=== PATIENT | female | born 1945 | race Caucasian/White ===

== ENCOUNTER 2023-10-16 14:31 | Inpatient (IN) | payer MEDICARE, OTHER, SELFPAY ==
[2023-10-16] VITALS (30 sets, daily range): BP systolic 112–174; BP diastolic 57–78; BMI 26.9
--- NOTE | 2023-10-16 09:20 | ED.GENMED ---
History of Present Illness
General
Chief Complaint: Breathing Problem
Time Seen by Provider: 10/16/23 09:19
History of Present Illness
History of Present Illness:
HPI: Patient comes in by ambulance from [facility]. Apparently there was concern because of room air sat of 85%. Of note, the patient is currently 91% on room air and reports no chest pain or shortness of breath. She states she did have
chest pain earlier in the day but also states that she has chest pain every day. She was given nitroglycerin earlier. She does arrive with a POLST indicating limited measures. She did have a sore throat. We are told that there are a lot of
patients at [facility] with COVID. She is currently being treated with Macrobid for UTI.
EXAM:
GENERAL: Well appearing in no distress, room air sats are 91%
HEENT: Moist oral mucosa
CARDIOVASCULAR: No murmurs, normal heart rate and rhythm, No chest wall tenderness, mastectomy noted
PULMONARY: No respiratory distress, breath sounds are clear and equal
ABDOMEN: Soft with no peritoneal signs, no tenderness
NEUROLOGIC: Excellent strength all extremities, no coordination deficits
PSYCHIATRIC: Appropriate mental status, fair insight and judgement
EXTREMITIES: Nontender, no edema, moves all extremities equally
SKIN: No rash, no lesions
ED COURSE:
9:30 AM: I initially evaluated patient
NUMBER AND COMPLEXITY OF PROBLEMS ADDRESSED AT THE ENCOUNTER
� Chronic conditions affecting care: COPD, CAD
� Acute Exacerbation and/or Progression of Chronic Illness: This is an acute problem
� Differential Diagnosis includes: ACS, COPD exacerbation
AMOUNT AND/OR COMPLEXITY OF DATA TO BE REVIEWED AND ANALYZED
� I performed an independent evaluation of and my interpretation is:
EKG: Sinus 72, left axis deviation, nonspecific ST abnormality
CT:
X-rays: Chest x-ray shows no sign of pneumonia but may suggest some degree of interstitial edema
Laboratory Studies: COVID-19 negative, white count normal, hemoglobin slightly low 11.4, BNP not significantly elevated
Other:
� Review of other/old records: I reviewed lab work that was obtained 09/04/2023 that was relatively unremarkable including normal TSH. Urine culture from 10/11/2023 grew Citrobacter freundii which was resistant to cefazolin and
ampicillin based antibiotics
� Clinical information was obtained by an independent historian: Reviewed notes from [facility]
� Prescriptions/Medications Considered but not given:
� Further testing considered but not performed:
RISK OF COMPLICATIONS AND/OR MORBIDITY OR MORTALITY OF PATIENT MANAGEMENT
� Social determinants of health affecting care: Currently staying at [facility]
� Discussion with other providers: Dr. Regalado notified; hospitalist for admission at 10:30a
� Escalation of care including admission/observation vs risk of discharge considered: Will give fluids and check labs and reassess. Will give a DuoNeb as the patient does have a history of COPD. She is mildly hypoxic. Troponin
is elevated at 0.087 with no old to compare. I notified cardiology. Given the now worsening chest discomfort with elevated troponin, will keep in the hospital for further management and cardiology consultation.
Phy Exam
Physical Exam
Physical Exam:
See HPI
Scores
Heart Failure Risk
Heart Failure Risk Score: Not Applicable
Course
Orders/Labs/Results
Orders:
Orders
10/16/23 09:20
Electrocardiogram (*1) Urgent
Reason for Study: Shortness of Breath
10/16/23 09:21
EKG- Treatment ONCE
10/16/23 09:30
CR Chest Portable - 1 View Urgent
Comment:
Reason For Exam: sob
Reason Study Needs to be Portable: Patient Unstable
10/16/23 09:31
0.9% Sodium Chloride 500 ml [Nss] 500 ml IV BOLUS
10/16/23 09:36
Ipratropium/Albuterol Sulfate [Duoneb] 3 ml INH R NOW ONE
10/16/23 09:41
Basic Metabolic Panel Urgent
COVID-19 Antigen Urgent
Source: Nasal Swab
Complete Blood Count/With Diff Urgent
Lactic Acid Q4H
Comment: CANCEL 2nd LACTIC ACID IF 1st LACTIC ACID IS LESS THAN 2
NT-proBNP Urgent
Troponin I Urgent
Blood Culture Q30M
VERONIKA Source: Blood/Venous
Specimen Description:
Influenza A+B Rapid Molecular Urgent
VERONIKA Source: Nasal Swab
Specimen Description:
10/16/23 10:00
Blood Culture Q30M
VERONIKA Source: Blood/Venous
Specimen Description:
10/16/23 10:32
Aspirin 325 mg PO NOW STA
Nitroglycerin Sublingual [Nitrostat (Sublingual)] 0.4 mg SL NOW STA
10/16/23 10:33
Nitroglycerin Sublingual [Nitrostat (Sublingual)] 0.4 mg .ROUTE .STK-MED ONE
10/16/23 13:30
Lactic Acid Q4H
Comment: CANCEL 2nd LACTIC ACID IF 1st LACTIC ACID IS LESS THAN 2
Abnormal Lab Results
10/16/23
09:41
RBC 3.78 L 10^6/uL
(4.20-5.40)
Hgb 11.4 L g/dL
(12.0-16.0)
Hct 34.5 L %
(37.0-47.0)
RDW 14.6 H %
(11.5-14.5)
BUN 19 H mg/dl
(7-17)
Glucose 100 H mg/dl
(70-99)
Troponin I 0.087 H* ng/ml
10/16/23 09:41
10/16/23 09:41
Vital Signs
Initial and Last Documented VS:
Initial Vital Signs
Temp Pulse Resp BP Pulse Ox
98.2 F 72 19 150/71 92
10/16/23 09:23 10/16/23 09:23 10/16/23 09:23 10/16/23 09:23 10/16/23 09:23
Last Documented Vital Signs
Temp Pulse Resp BP Pulse Ox
98.2 F 89 23 174/73 93
10/16/23 09:23 10/16/23 10:35 10/16/23 10:35 10/16/23 10:35 10/16/23 10:37
*Pulse Oximetry
Patient hypoxic: yes
Comment: 91% to 92% on room air
*Critical Care Note
Total Time (30-74mins, 75-104mins- exclusive of procedures): Not Applicable
ED Attending Note
-
Portions of this chart may have been created with voice recognition software.� Occasional wrong word or��sound alike� substitutions may have occurred due to the inherent limitations of voice recognition software.
Discharge Plan
Departure
Patient Disposition: Admit
Date of Disposition: 10/16/23
Time of Disposition: 10:39
Presentation/result/management discussed w/ accepting MD/DO: Hospitalist
Discharge Problem:
Elevated troponin
Referrals:
Alen Vallecillo DO [Family Provider] -
Interventions
Interventions:
*Risk Screen - Suicide Last Done: 10/16/23 09:23
*ED COVID-19 Vaccine History Last Done: 10/16/23 10:39
ED- Cardiac Assessment Last Done: 10/16/23 10:37
ED- Pulmonary Assessment Last Done: 10/16/23 10:37
[2023-10-16 09:52] LABS: % Basophils 0.5 % (0-2); % Eosinophils 2.1 % (0-6); % Immature Granulocytes 0.3 % (0-0.5); % Lymphocytes 22.1 % (20.5-51.1); % Monocytes 8.2 % (1.7-9.3); % Neutrophils 66.8 % (42.2-75.2); Absolute Eosinophils 0.2 10^3/uL (0-0.7); Absolute Lymphocytes 1.7 10^3/uL (1.2-3.4); Absolute Monocytes 0.6 10^3/uL (0.1-0.6); Absolute Neutrophils 5.1 10^3/uL (1.4-6.5); Hematocrit 34.5 % (37.0-47.0); Hemoglobin 11.4 g/dL (12.0-16.0); Mean Corpuscular Hgb 30.2 pg (27.0-31.0); Mean Corpuscular Volume 91.3 fL (81.0-99.0); Mean Platelet Volume 9.9 fL (7.4-10.4); Nucleated Red Blood Cells % 0 %; Platelet Count 251 10^3/uL (130-400); Red Blood Cell Count 3.78 10^6/uL (4.20-5.40); Red Cell Dist. Width 14.6 % (11.5-14.5); White Blood Cell Count 7.6 10^3/uL (4.8-10.8)
[2023-10-16] MEDS: DUONEB 3 ML INH (09:54)
[2023-10-16] MEDS: NSS 500 IV (09:56)
[2023-10-16 10:06] LABS: COVID-19 Antigen Negative (Negative)
[2023-10-16 10:08] LABS: Blood Urea Nitrogen 19 mg/dl (7-17); Calcium 8.9 mg/dl (8.4-10.2); Carbon Dioxide 28 mmol/L (22-30); Chloride 105 mmol/L (98-107); Estimated Creatinine Clearance 47 ml/min; Glucose 100 mg/dl (70-99); Potassium 3.6 mmol/L (3.5-5.1); Sodium 140 mmol/L (135-145); eGFR > 60.00
[2023-10-16 10:11] LABS: Lactic Acid 1.2 mmol/L (0.7-2.0)
[2023-10-16 10:27] LABS: NT-proBNP 761 pg/ml; Troponin I 0.087 ng/ml
[2023-10-16] MEDS: NITROSTAT (SUBLINGUAL) 0.400000000000000022 MG SL (10:34)
[2023-10-16] MEDS: ASPIRIN 325 MG PO (10:52)
--- NOTE | 2023-10-16 11:17 | CON.CAR ---
Addendum entered and electronically signed by Terrell Munoz MD 10/16/23 16:40:
I saw and examined the patient.
The Horizontal Drill Operator's note was reviewed and I agree with the note.
Comment:
GEN: No distress, awake, Ox3
HEENT: supple, anicteric, mmm
LUNGS: CTA, no wheezes/rales
CV: Reg, S1/S2, 1/6 syst LSB, no gallop
ABD: soft, BS+, NT/ND
EXT: No edema
NEURO: L sided weakness
SKIN: No rash
Plan:
She has a past medical history of coronary artery disease, stroke status post cath, chronic chest pains, hypertension, and hyperlipidemia. She presents from [facility] for hypoxia and continued intermittent chest pains. She had a history of
PCI in 2009 vessel is unknown. She had significant stroke status post diagnostic cardiac cath in [address] scan reveals no pulmonary embolism or clear signs of congestive heart failure.
Cardiac troponin remains abnormal at 0.08. With her history of stroke we will start with an echocardiogram and try to adjust medical therapy for coronary arteries.
Continue metoprolol, Plavix, and diltiazem. Heart rate and blood pressure are stable.
Continue Crestor 20 mg daily.
She has been intolerant of Imdur and isosorbide and reportedly Norvasc in the past. Will check records.
Will try nitro patch 0.1 and see if this helps symptoms
Original Note:
Consultation
Consultation Request
Date/Time Consultation Requested: 10/16/23
Date/Time Consultation Performed: 10/16/23
Requesting Provider: Dr. Echeverria in the ER
Performing Provider: Dr. Munoz
Reason for Consultation: Chest pain, SOB, elevated Troponin
Medical History
-
History of Present Illness:
Patient came to [facility] from [facility] with chest pain and SOB and cardiology has been consulted. Patient was sent from [facility] to [facility] this morning with hypoxia. Patient's daughter and are bedside and say that there is no h/o hypoxia and patient does
not normally wear supplemental oxygen. Patient just transitioned to being a long-term resident at [facility] in August. She previously lived at home with her , but has required extra assistance since she had a CVA in 2019 during a cath. Patient
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 Patient has also been on
medical therapy including chronic Plavix therapy, Toprol XL and Imdur ER, but patient stopped taking Imdur ER in the last month or so. Patient has Ranexa listed as an intolerance on her 'my-chart' patient portal. Patient says that she has chest pain
daily and takes NTG SL about once a day and usually has relief of pain with 1 dose. Patient also has morphine PO PRN and uses this several times a week. Family thinks patient has more chest pain when she has a UTI and that she has had frequent UTIs
in the last year. Patient has been on multiple antibiotic regimens for UTI and family reports that her urine never seems to clear. Patient was hypoxic at [facility] and sent to [facility]. In the ER she was started on oxygen and pulse ox improved. Patient had
chest pain which again her family says is not unusual. Patient was given NTG SL x1 and no relief so she was given a 2nd NTG SL and then had relief.
PMH:
Chronic angina
CAD s/p multivessel PCI at [facility] 2019
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
Chronic Plavix therapy
HTN
Hyperlipidemia
Past Medical History
Past Medical History: Other (in HPI)
Past Surgical History: Appendectomy, Cardiac (multi-vessel PCI at [facility] 2019), Cholecystectomy, Gynecological (B/L mastectomy for CAD) and Tonsilectomy
Social History
Tobacco: Former Smoker
Alcohol: None
Drug: None
Personal:
Living: Retirement (long-term at [facility] since 08/2023)
Family History
Family History: Diabetes
Allergies / Home Medications
Allergy/AdvReac Type Severity Reaction Status Date / Time
No Known Allergies Allergy Unverified 10/16/23 09:20
Review of Systems
-
History Source: Patient and Family (daughter and at bedside helping with HPI)
All other systems: Negative unless noted
Physical Exam
Vital Signs
Temp Pulse Resp BP Pulse Ox
98.2 F 89 23 174/73 93
10/16/23 09:23 10/16/23 10:35 10/16/23 10:35 10/16/23 10:35 10/16/23 10:37
GEN: NAD. AAOx3
HEENT: EOMI, MMM
LUNGS: CTA B/L, no wheezes or rales
CV: Reg, S1/S2, no murmur
ABD: soft, BS+, NT/ND
EXT: No clubbing, cyanosis, lesions or edema B/L
NEURO: Left hemiparesis.
SKIN: Warm, dry and pink. No rash
Lab Results
10/16/23 09:41
10/16/23 09:41
Troponin I 0.087 ng/ml H* 10/16/23 09:41
Vkp-G-Gqtibjvziow Pept 761 pg/ml 10/16/23 09:41
Impression / Plan
-
PCP: Dr. Alen Vallecillo
Cardiology: Dr. Edvin Calvin at [facility]
Impression:
SOB
Acute hypoxic respiratory insufficiency
Possible UTI with h/o frequent UTIs
Elevated Troponin
Chronic angina
CAD s/p multivessel PCI at [facility] 2019
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
Chronic Plavix therapy
HTN
Hyperlipidemia
Echo 2020: [facility] study, EF 75%, no WMA, no significant valve disease
Plan:
-Patient came to [facility] from [facility] with chest pain and SOB and cardiology has been consulted. Patient was sent from [facility] to [facility] this morning with hypoxia. Patient's daughter and are bedside and say that there is no h/o hypoxia and patient does
not normally wear supplemental oxygen. Patient just transitioned to being a long-term resident at [facility] in August. She previously lived at home with her , but has required extra assistance since she had a CVA in 2019 during a cath. Patient
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 Patient has also been on
medical therapy including chronic Plavix therapy, Toprol XL and Imdur ER, but patient stopped taking Imdur ER in the last month or so. Patient has Ranexa listed as an intolerance on her 'my-chart' patient portal. Patient says that she has chest pain
daily and takes NTG SL about once a day and usually has relief of pain with 1 dose. Patient also has morphine PO PRN and uses this several times a week. Family thinks patient has more chest pain when she has a UTI and that she has had frequent UTIs
in the last year. Patient has been on multiple antibiotic regimens for UTI and family reports that her urine never seems to clear. Patient was hypoxic at [facility] and sent to [facility]. In the ER she was started on oxygen and pulse ox improved. Patient had
chest pain which again her family says is not unusual. Patient was given NTG SL x1 and no relief so she was given a 2nd NTG SL and then had relief.
-Reviewed records form [facility] and summarized above.
-Patient with chronic angina and a h/o CAD with multivessel stenting in 2019. Initial Troponin 0.087 and then trended down to 0.082. ECG reviewed by me without acute ischemic changes.
-Patient has been on Ranexa and was intolerant for unclear reasons. Most recently she has stopped her Imdur ER. Patient is willing to try a Nitro-dur patch at 0.1 mg/hr, ordered to start now and order for removal at HS.
-Check echo
-Do not check additional Troponins.
-pro-BNP is only 761. There is no h/o CHF and patient does not take a diuretic as an outpatient.
--- NOTE | 2023-10-16 14:07 | HPS.HSE ---
Addendum entered and electronically signed by Santhosh Siegel MD 10/16/23 15:11:
I saw and examined the patient.
The RUBBER FLAP TUBER MACHINE OPERATOR or PA's note was reviewed and I agree with the note.
Comment: 78-year-old female with past medical history of CAD status post stent, CVA, hypertension, COPD came to the hospital initially with hypoxia. In the ED patient developed severe chest pain. Per patient she has been having chest pain for
about a month. Seen by cardiology in the ED. No plans for cardiac catheterization as patient does not want to. Will treat medically for now. Trend troponin. Check echo. Chest pain better with nitro.
General:�Comfortable and Conversant
HEENT:�Anicteric, Moist mucous membranes and Oxygen (Nasal Cannula)
Respiratory:�Clear and Non Labored Respirations
Cardiac:�S1/S2 and Regular Rhythm; No Murmur
GI:�Soft, Non Tender and Non Distended
Rectal:�Deferred by Provider
Musculoskeletal:�No Clubbing, No Cyanosis and No Edema
Skin:�Warm and Dry; No Rash
Neuro:�Awake, Alert, Oriented and Other (Left hemiparesis which is baseline)
Original Note:
Family Physician
-
Family Physician: Alen Vallecillo DO
Chief Complaint
-
Chest Pain
History of Present Illness
Patient is a 78 y/o female past medical history of CAD, CVA, HTN and COPD who presents with hypoxia. Patient resides at [facility]. She was noted to be hypoxic today by staff who then sent her to the emergency department for evaluation.
Patient denies any shortness of breath. She admits to daily episodes of chest pain for which she takes nitroglycerin with improvement. Upon arrival to the emergency room to be in the point of severe chest pain. She notes that pain today was
radiating to her back and down both arms which is not her usual pain. She denies any shortness of breath, palpitations or lower extremity edema.
Medical History
Past Medical History
Past Medical History: Reports Other
Additional Past Medical History:
Coronary Artery Disease
CVA post cardiac cath with Residual Left Hemiparesis
Essential Hypertension
Hyperlipidemia
COPD
Anxiety/Depression
Spinal Stenosis
GERD
Chronic Constipation
Recurrent Urinary Tract Infections
Breast Cancer
Past Surgical History: Reports Other
Additional Past Surgical History:
Bilateral Mastectomy
Cholecystectomy
Appendectomy
Laminectomy
Social History
Tobacco: Former Smoker (Quit in 2019)
Alcohol: None
Living: [facility]
Family History
Family History: Not pertinent
Allergies / Home Medications
Allergies reflects when Allergies were last updated in [facility].
Home Medications with original date entered in [facility]
Allergy/Medication List:
Allergies
Allergy/AdvReac Type Severity Reaction Status Date / Time
No Known Allergies Allergy Unverified 10/16/23 09:20
Home Medications
Saccharomyces boulardii 250 mg capsule (Probiotic (S.boulardii)) 250 mg PO BID@0830,1830 probiotic 10/16/23
acetaminophen 325 mg tablet (Tylenol) 650 mg PO Q4H PRN mild pain/fever>100.4 10/16/23
albuterol sulfate 90 mcg/actuation aerosol inhaler 2 puff inhalation R Q6HPRN PRN wheezing 10/16/23
bisacodyl 10 mg rectal suppository 10 mg IA DAILY PRN q 3 days when no BM and MOM/lactulose ineffective 10/16/23
cholecalciferol (vitamin D3) 1,250 mcg (50,000 unit) tablet 1,250 mcg PO QMONTH@829 Supplement 10/16/23
clonazepam 1 mg tablet 1 mg PO DAILY@2029 Mental Health/Anxiety 10/16/23
clopidogrel 75 mg tablet 75 mg PO DAILY@829 Blood Clot Prevention/Tx 10/16/23
diltiazem HCl 180 mg capsule,24 hr,extended release 180 mg PO DAILY@829 Heart Disease/Condition 10/16/23
fluticasone furoate 100 mcg-vilanterol 25 mcg/dose inhalation powder (Breo Ellipta) 1 inh inhalation R DAILY@0830 Lung/Breathing Issues 10/16/23
magnesium hydroxide 400 mg/5 mL oral suspension (Milk of Magnesia) 30 ml PO HSPRN PRN constipation 10/16/23
metoprolol succinate 50 mg tablet,extended release 24 hr 50 mg PO DAILY@1830 Heart Disease/Condition 10/16/23
morphine 15 mg immediate release tablet 15 mg PO Q4H PRN severe pain 10/16/23
dnctablk-gzmcken-jbxg-lutein tablet 1 tab PO DAILY@0830 Supplement 10/16/23
naloxone 4 mg/actuation nasal spray 1 spray intranasal DAILYPRN PRN opioid overdose 10/16/23
nitrofurantoin monohydrate/macrocrystals 100 mg capsule 100 mg PO BID@0830,1830 UTI 10/16/23
nitroglycerin 0.4 mg sublingual tablet 0.4 mg sublingual [id number] PRN acute angina 10/16/23
pantoprazole 40 mg tablet,delayed release 40 mg PO DAILY@0830 Gastrointestinal Issue 10/16/23
phenazopyridine 200 mg tablet 200 mg PO TID@0830,1330,1830 UTI 10/16/23
rosuvastatin 20 mg tablet 20 mg PO DAILY@2030 High Cholesterol 10/16/23
sennosides 8.6 mg-docusate sodium 50 mg tablet 2 tab-cap PO DAILY@1830 Constipation 10/16/23
sertraline 50 mg tablet 50 mg PO DAILY@0830 Mental Health/Anxiety 10/16/23
Review of Systems
-
A 12 point ROS was completed and negative except as noted: Yes
Constitutional: Denies Fever or Chills
Respiratory: Denies Cough or Trouble Breathing
Cardiac: Reports See HPI
Physical Exam
Vital Signs
Vital Signs
Temp Pulse Resp BP Pulse Ox
98.2 F 89 23 174/73 93
10/16/23 09:23 10/16/23 10:35 10/16/23 10:35 10/16/23 10:35 10/16/23 10:37
Physical Exam
General: Comfortable and Conversant
HEENT: Anicteric, Moist mucous membranes and Oxygen (Nasal Cannula)
Respiratory: Clear and Non Labored Respirations
Cardiac: S1/S2 and Regular Rhythm; No Murmur
GI: Soft, Non Tender and Non Distended
Rectal: Deferred by Provider
Musculoskeletal: No Clubbing, No Cyanosis and No Edema
Skin: Warm and Dry; No Rash
Neuro: Awake, Alert, Oriented and Other (Left hemiparesis which is baseline)
Laboratory Results
-
10/16/23 09:41
10/16/23 09:41
Laboratory Results
Lactic Acid 1.2 mmol/L (0.7-2.0) 10/16/23 09:41
Troponin I 0.087 ng/ml H* 10/16/23 09:41
Data Reviewed
-
Medical Tests (Nuc Med, Echo, EKG etc): Report Reviewed by me (EKG)
Lab Data: Labs Reviewed by me
Impression/Plan
-
Unstable Angina
-Consult Cardiology
-Continue to trend troponin
-Check Echo
-Continue Nitroglycerine SL PRN
-Nitroglycerine transdermal added by Cardiology
Coronary Artery Disease s/p cardiac stent in 2019
-Attempt to obtain records
-Continue Plavix
CVA post cardiac cath with Residual Left Hemiparesis
-Patient is wheelchair bound at baseline
-Continue Plavix
-Consult PT/OT
Essential Hypertension
-Continue diltiazem and metoprolol
Hyperlipidemia
-Continue rosuvastatin
COPD, no acute exacerbation
-Continue Pulmicort neb in place of usual Breo
-Cotninue Duoneb PRN
Generalized Anxiety Disorder
-Continue sertraline
-Continue clonazepam
Spinal Stenosis
-Continue morphine IR prn severe pain
GERD
-Continue Protonix
Chronic Constipation
-Continue Senna-S BID
Recent Citrobacter UTI
-Continue Macrobid to complete coarse on Oct 18
DVT proph: Lovenox
Code Status: DNR
[2023-10-16] MEDS: NITRO-DUR 0.100000000000000006 MG TRANSDERM (15:17)
[2023-10-16 16:01] LABS: Troponin I 0.082 ng/ml
--- NOTE | 2023-10-16 17:23 | PTCARENOTE ---
Received patient from ER at 1700, awake alert oriented . Able to make needs known. No complaints of chest pain, denies shortness of breath. Is on o2 at 2 LPM. Oriented to room , call wilson in reach .
[2023-10-16] MEDS: Pyridium 200 MG PO (17:51)
[2023-10-16] MEDS: MACROBID 100 MG PO (17:51)
[2023-10-16] MEDS: FLORASTOR 250 MG PO (17:52)
[2023-10-16] MEDS: LOVENOX 40 MG SC (17:52)
[2023-10-16] MEDS: TOPROL XL 50 MG PO (17:53)
[2023-10-16] MEDS: PULMICORT 0.5 MG INH (20:11)
[2023-10-16] MEDS: SENOKOT-S 2 TABLET PO (20:28)
[2023-10-16] MEDS: CRESTOR 20 MG PO (20:28)
[2023-10-16] MEDS: KLONOPIN 1 MG PO (20:28)
[2023-10-16 21:04] LABS: Troponin I 0.075 ng/ml
[2023-10-17] VITALS (9 sets, daily range): BP systolic 103–177; BP diastolic 62–83; PULSE 81–89; O2SAT 93; BMI 23.9
[2023-10-17 07:55] LABS: Hematocrit 34.3 % (37.0-47.0); Mean Corp Hgb Conc. 32.1 g/dL (33.0-37.0); Mean Corpuscular Hgb 29.6 pg (27.0-31.0); Mean Corpuscular Volume 92.5 fL (81.0-99.0); Mean Platelet Volume 10.1 fL (7.4-10.4); Platelet Count 234 10^3/uL (130-400); Red Blood Cell Count 3.71 10^6/uL (4.20-5.40); Red Cell Dist. Width 14.5 % (11.5-14.5); White Blood Cell Count 6.2 10^3/uL (4.8-10.8)
[2023-10-17] MEDS: PULMICORT 0.5 MG INH ×2 (08:11→20:13)
[2023-10-17] MEDS: NITRO-DUR 0.100000000000000006 MG TRANSDERM (08:25)
[2023-10-17] MEDS: PLAVIX 75 MG PO (08:26)
[2023-10-17] MEDS: SENOKOT-S 2 TABLET PO (08:26)
[2023-10-17] MEDS: MACROBID 100 MG PO ×2 (08:26→17:31)
[2023-10-17] MEDS: CARDIZEM CD 180 MG PO (08:26)
[2023-10-17] MEDS: FLORASTOR 250 MG PO ×2 (08:26→17:31)
[2023-10-17] MEDS: ZOLOFT 50 MG PO (08:27)
[2023-10-17] MEDS: Pyridium 200 MG PO ×2 (08:27→13:05)
[2023-10-17] MEDS: PROTONIX 40 MG PO (08:27)
[2023-10-17 08:45] LABS: Blood Urea Nitrogen 19 mg/dl (7-17); Calcium 8.4 mg/dl (8.4-10.2); Carbon Dioxide 26 mmol/L (22-30); Chloride 108 mmol/L (98-107); Estimated Creatinine Clearance 53 ml/min; Glucose 81 mg/dl (70-99); HDL Cholesterol 39 mg/dl; LDL Cholesterol, Calculated 48 mg/dl; Magnesium 2.1 mg/dl (1.6-2.3); Potassium 3.9 mmol/L (3.5-5.1); Sodium 139 mmol/L (135-145); Total Cholesterol 111 mg/dl (50-199); Triglyceride 120 mg/dl (10-149); Very Low Density Lipoprotein 24 mg/dl (0-30); eGFR > 60.00
--- NOTE | 2023-10-17 11:29 | W.PN.CARDCBS ---
Addendum entered and electronically signed by Memo Ceja MD 10/17/23 15:33:
I saw and examined the patient.
The Records And Tape Recordings Engineer's note was reviewed and I agree with the note.
Comment: Briefly 78-year-old woman past medical history of MV CAD with prior PCI in 2019 complicated by CVA and chronic angina who presented initially from [facility] with hypoxia based on pulse ox reading there. Here in the [place]
emergency department she developed chest discomfort and found to have elevated troponin and therefore was admitted for further evaluation and management.
It sounds like she has chronic stable angina, but unfortunately has been intolerant to multiple medications including amlodipine, Ranexa and recently Imdur
She has been taking sublingual nitroglycerin on a regular basis
Nitropatch was placed yesterday and since that time patient tells me she is chest pain-free, would plan to continue as an outpatient
Continue medical management of CAD with Plavix and high intensity statin
Continue beta-yareli and calcium channel yareli as antianginals
In regards to further ischemic evaluation, she would not be agreeable to invasive coronary angiography given her previous cath was complicated by periprocedural CVA
Stable cardiac status, we will sign off
Outpatient follow-up has been arranged
Original Note:
Today's Communication / Plan
-
No further chest pain
Continue nitro patch
Follow up arranged
Impression / Plan
-
PCP: Dr. Alen Vallecillo
Cardiology: Dr. Edvin Calvin at [facility]
Impression:
SOB
Acute hypoxic respiratory insufficiency
Possible UTI with h/o frequent UTIs
NonMI troponin elevation
Chronic angina
CAD s/p multivessel PCI at [facility] 2019
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
Chronic Plavix therapy
HTN
Hyperlipidemia
Echo 2020: [facility], EF 75%, no WMA, no significant valve disease
Echo 10/17/2023: Study completed, report pending.
Plan:
-Presented with SOB and chest pain. She has known history of chronic angina with h/o multivessel stenting in 2019.
-Initial troponin elevated at 0.087, trending down thereafter.
-She previously was on Ranexa and Imdur and reportedly did not tolerate either medication.
-Started on Nitro-dur patch at 0.1 mg/hr 10/16 and has been chest pain free.
-Will continue nitro patch, plavix, cardizem, and Toprol.
-Continue crestor. LDL 48.
-Echo completed 10/17/2023, report pending.
-No h/o CHF and appears euvolemic.
-Will arrange OP follow up.
HPI: Patient came to [facility] from [facility] with chest pain and SOB and cardiology has been consulted. Patient was sent from [facility] with hypoxia. Patient's daughter and are bedside and say that there is no h/o hypoxia and patient
does not normally wear supplemental oxygen. Patient just transitioned to being a long-term resident at [facility] in August. She previously lived at home with her , but has required extra assistance since she had a CVA in 2019 during a cath.
Patient was also found to have multivessel CAD and a couple of weeks later she went back to the [facility] laboratory [facility] and had multivessel stenting when she was turned down for CABG, but they do not have stent cards and do not know which vessels. Patient has also
been on medical therapy including chronic Plavix therapy, Toprol XL and Imdur ER, but patient stopped taking Imdur ER in the last month or so. Patient has Ranexa listed as an intolerance on her 'my-chart' patient portal. Patient says that she has
chest pain daily and takes NTG SL about once a day and usually has relief of pain with 1 dose. Patient also has morphine PO PRN and uses this several times a week. Family thinks patient has more chest pain when she has a UTI and that she has had
frequent UTIs in the last year. Patient has been on multiple antibiotic regimens for UTI and family reports that her urine never seems to clear. Patient was hypoxic at [facility] and sent to [facility]. In the ER she was started on oxygen and pulse ox improved.
Patient had chest pain which again her family says is not unusual. Patient was given NTG SL x1 and no relief so she was given a 2nd NTG SL and then had relief.
Progress Note - Chief Technical Officer
Subjective
Date of Service: October 17, 2023
No further chest pain.
Objective
Labs:
10/17/23 06:46
10/17/23 06:46
Labs
Hgb 11.0 g/dL (12.0-16.0) L 10/17/23 06:46
Hct 34.3 % (37.0-47.0) L 10/17/23 06:46
Plt Count 234 10^3/uL (130-400) 10/17/23 06:46
Sodium 139 mmol/L (135-145) 10/17/23 06:46
Potassium 3.9 mmol/L (3.5-5.1) 10/17/23 06:46
BUN 19 mg/dl (7-17) H 10/17/23 06:46
Creatinine 0.7 mg/dL (0.6-1.0) 10/17/23 06:46
Glucose 81 mg/dl (70-99) 10/17/23 06:46
Troponins
10/16/23 10/16/23 10/16/23
09:41 15:15 20:25
Troponin I 0.087 H* 0.082 H* 0.075 H*
Vital Signs and I&O:
Vital Signs
Temp Pulse Resp BP Pulse Ox
98.0 F 61 16 143/63 92
10/17/23 07:30 10/17/23 08:14 10/17/23 08:14 10/17/23 07:30 10/17/23 10:15
Vital Signs
Temp Pulse Resp BP Pulse Ox
98.0 F 61 16 143/63 92
10/17/23 07:30 10/17/23 08:14 10/17/23 08:14 10/17/23 07:30 10/17/23 10:15
Intake & Output
10/15/23 10/16/23 10/17/23 10/18/23
06:59 06:59 06:59 06:59
Intake Total 960 / 960
Output Total 100 / 100
Balance 860 / 860
Physical Exam
Physical Exam
GEN: NAD. AAOx3
HEENT: EOMI, MMM
LUNGS: CTA B/L, no wheezes or rales
CV: Reg, S1/S2, no murmur
ABD: soft, BS+, NT/ND
EXT: No clubbing, cyanosis, lesions or edema B/L
NEURO: Left hemiparesis.
SKIN: Warm, dry and pink. No rash
--- NOTE | 2023-10-17 11:40 | W.PN.HOSP.TC ---
Today's Communication/Plan
-
monitor vitals
see plan
cw nitro
cardiology to see today
Assessment / Plan
Assessment / Plan
General:�Comfortable and Conversant
HEENT:�Anicteric, Moist mucous membranes and Oxygen (Nasal Cannula)
Respiratory:�Clear and Non Labored Respirations
Cardiac:�S1/S2 and Regular Rhythm; No Murmur
GI:�Soft, Non Tender and Non Distended
Rectal:�Deferred by Provider
Musculoskeletal:�No Clubbing, No Cyanosis and No Edema
Skin:�Warm and Dry; No Rash
Neuro:�Awake, Alert, Oriented and Other (Left hemiparesis which is baseline)
Unstable Angina
-Consult Cardiology following
trop not significant; likely non [place] related
- Echo
-cw nitro patch
Coronary Artery Disease s/p cardiac stent in 2019
-Attempt to obtain records
-Continue Plavix
CVA post cardiac cath with Residual Left Hemiparesis
-Patient is wheelchair bound at baseline
-Continue Plavix
-PT/OT
Essential Hypertension
-Continue diltiazem and metoprolol
Hyperlipidemia
-Continue rosuvastatin
COPD, no acute exacerbation
-Continue Pulmicort neb in place of usual Breo
-Cotninue Duoneb PRN
Generalized Anxiety Disorder
-Continue sertraline
-Continue clonazepam
Spinal Stenosis
-Continue morphine IR prn severe pain
GERD
-Continue Protonix
Chronic Constipation
-Continue Senna-S BID
Recent Citrobacter UTI
-Continue Macrobid to complete coarse on Oct 18
DVT proph: Lovenox
Code Status: DNR
Anticipated Discharge: Within 24 hours
Subjective/Interval History
-
Date of Service: October 17, 2023
feeling better
Objective Data
-
Labs:
Laboratory Results
10/17/23
06:46
WBC 6.2
Hgb 11.0 L
Hct 34.3 L
Plt Count 234
Sodium 139
Potassium 3.9
Chloride 108 H
Carbon Dioxide 26
BUN 19 H
Creatinine 0.7
Glucose 81
Calcium 8.4
Vital Signs:
Vital Signs
Temp Pulse Resp BP Pulse Ox
98.0 F 61 16 143/63 92
10/17/23 07:30 10/17/23 08:14 10/17/23 08:14 10/17/23 07:30 10/17/23 10:15
I&O
10/16/23 10/17/23 10/18/23
06:59 06:59 06:59
Intake Total 960 / 960
Output Total 100 / 100
Balance 860 / 860
--- NOTE | 2023-10-17 16:25 | CM ---
Addendum entered by Juany Villaseñor 10/17/23 17:02:
If needed, Fax # for [facility] is [phone]
Spoke with Jeffry # [phone]; explained that the SNF referral was sent via [employer] (aka, [employer]). He will give this information to his supercharge repair supervisor
Original Note:
Initial assessment completed with daughter, Berta, via phone
Daughter came from [facility]; terminal carman care; bed on hold
Daughter reported that mother requires total care; but can feed self if food is cut for her; until recently, she was able to ambulate; incontinent unless staff can get her to bathroom when needed.
Explained to daughter that PT recommends Skilled rehab when stable for discharge. Daughter reported that she was in the process of moving mother to [facility] (located near her home).
Daughter reported via phone that she spoke to [facility] and was told that they will have a bed on Saturday. Per daughter's request, SNF referral sent to [facility]
Daughter reported that she plans to contact [facility] and cancel bed hold
Patient has Medicare; requires 3 night stay for SNF
Plan: discharge to SNF @ [facility], located at [address] [place] [address]; followed by prison care
[2023-10-17] MEDS: LOVENOX 40 MG SC (17:30)
[2023-10-17] MEDS: TOPROL XL 50 MG PO (17:31)
[2023-10-17] MEDS: KLONOPIN PO (20:28)
[2023-10-17] MEDS: CRESTOR 20 MG PO (20:28)
[2023-10-17] MEDS: SENOKOT-S PO (20:29)
[2023-10-17] MEDS: KLONOPIN 1 MG PO (22:29)
[2023-10-18 03:56] VITALS: BP 136/62
[2023-10-18 04:57] VITALS: BMI 24.0
[2023-10-18 07:30] VITALS: BP 162/73
[2023-10-18] MEDS: PULMICORT 0.5 MG INH ×2 (07:53→20:15)
[2023-10-18] MEDS: DUONEB 3 ML INH ×2 (07:54→15:55)
[2023-10-18 08:59] LABS: % Basophils 0.4 % (0-2); % Eosinophils 2.7 % (0-6); % Immature Granulocytes 0.4 % (0-0.5); % Lymphocytes 32.5 % (20.5-51.1); % Monocytes 10.7 % (1.7-9.3); % Neutrophils 53.3 % (42.2-75.2); Absolute Eosinophils 0.2 10^3/uL (0-0.7); Absolute Lymphocytes 1.8 10^3/uL (1.2-3.4); Absolute Monocytes 0.6 10^3/uL (0.1-0.6); Absolute Neutrophils 2.9 10^3/uL (1.4-6.5); Hematocrit 33.7 % (37.0-47.0); Hemoglobin 10.9 g/dL (12.0-16.0); Mean Corp Hgb Conc. 32.3 g/dL (33.0-37.0); Mean Corpuscular Hgb 29.1 pg (27.0-31.0); Mean Corpuscular Volume 90.1 fL (81.0-99.0); Mean Platelet Volume 9.5 fL (7.4-10.4); Nucleated Red Blood Cells % 0 %; Platelet Count 233 10^3/uL (130-400); Red Blood Cell Count 3.74 10^6/uL (4.20-5.40); Red Cell Dist. Width 14.5 % (11.5-14.5); White Blood Cell Count 5.5 10^3/uL (4.8-10.8)
[2023-10-18] MEDS: PROTONIX 40 MG PO (08:59)
[2023-10-18] MEDS: ZOLOFT 50 MG PO (08:59)
[2023-10-18] MEDS: SENOKOT-S PO ×3 (08:59→20:43)
[2023-10-18] MEDS: NITRO-DUR 0.100000000000000006 MG TRANSDERM (08:59)
[2023-10-18] MEDS: PLAVIX 75 MG PO (09:00)
[2023-10-18] MEDS: MACROBID PO ×3 (09:00→17:11)
[2023-10-18] MEDS: FLORASTOR 250 MG PO ×2 (09:00→17:11)
[2023-10-18] MEDS: CARDIZEM CD 180 MG PO (09:00)
[2023-10-18 09:16] LABS: Blood Urea Nitrogen 15 mg/dl (7-17); Calcium 8.4 mg/dl (8.4-10.2); Carbon Dioxide 26 mmol/L (22-30); Chloride 105 mmol/L (98-107); Estimated Creatinine Clearance 47 ml/min; Glucose 88 mg/dl (70-99); Potassium 3.5 mmol/L (3.5-5.1); Sodium 138 mmol/L (135-145); eGFR > 60.00
--- NOTE | 2023-10-18 11:03 | PTCARENOTE ---
Pt refused Macrobid. Dr. Siegel notified. No new orders.
--- NOTE | 2023-10-18 11:17 | W.PN.HOSP.TC ---
Today's Communication/Plan
-
Monitor vital signs and see plan
If diarrhea persist then check stool studies
Continue Nitropatch
Discharge planning
Assessment / Plan
Assessment / Plan
General:�Comfortable and Conversant
HEENT:�Anicteric, Moist mucous membranes and Oxygen (Nasal Cannula)
Respiratory:�Clear and Non Labored Respirations
Cardiac:�S1/S2 and Regular Rhythm; No Murmur
GI:�Soft, Non Tender and Non Distended
Rectal:�Deferred by Provider
Musculoskeletal:�No Clubbing, No Cyanosis and No Edema
Skin:�Warm and Dry; No Rash
Neuro:�Awake, Alert, Oriented and Other (Left hemiparesis which is baseline)
Unstable Angina
-Cardiology following
trop not significant; likely non [place] related. patient does not want cardiac catheterization as with the previous catheterization she ended up having stroke.
- Echo 10/17 with EF 60 to 65%
-cw nitro patch, pain better
Coronary Artery Disease s/p cardiac stent in 2019
-Attempt to obtain records
-Continue Plavix
CVA post cardiac cath with Residual Left Hemiparesis
-Patient is wheelchair bound at baseline
-Continue Plavix
-PT/OT
Mild anemia, suspect anemia of chronic disease
Diarrhea
monitor; if increasing frequency then will check stool studies
Essential Hypertension
-Continue diltiazem and metoprolol
Hyperlipidemia
-Continue rosuvastatin
COPD, no acute exacerbation
-Continue Pulmicort neb in place of usual Breo
-Cotninue Duoneb PRN
Generalized Anxiety Disorder
-Continue sertraline
-Continue clonazepam
Spinal Stenosis
-Continue morphine IR prn severe pain
GERD
-Continue Protonix
Chronic Constipation
-Continue Senna-S BID
Recent Citrobacter UTI
-Continue Macrobid to complete coarse on Oct 18
DVT proph: Lovenox
Code Status: DNR
Anticipated Discharge: Within 24 hours
Subjective/Interval History
-
Date of Service: October 18, 2023
denies pain
Objective Data
-
Labs:
Laboratory Results
10/18/23
08:24
WBC 5.5
Hgb 10.9 L
Hct 33.7 L
Plt Count 233
Sodium 138
Potassium 3.5
Chloride 105
Carbon Dioxide 26
BUN 15
Creatinine 0.8
Glucose 88
Calcium 8.4
Vital Signs:
Vital Signs
Temp Pulse Resp BP Pulse Ox
97.7 F 63 18 162/73 94
10/18/23 07:30 10/18/23 09:00 10/18/23 07:57 10/18/23 09:00 10/18/23 07:57
I&O
10/17/23 10/18/23 10/19/23
06:59 06:59 06:59
Intake Total 960 / 960 1080 / 1080
Output Total 100 / 100
Balance 860 / 860 1080 / 1080
[2023-10-18 11:35] VITALS: BP 134/62
--- NOTE | 2023-10-18 13:53 | CM ---
manager book spoke with Medhat in admissions at [facility], [facility], located at [address] [place] [address], and patient has been accepted at [facility] tomorrow Saturday10/19/23. Plan will
be to have both paitnt and spouse placed in same retirement. If they are any questions call Medhat .
[facility]
Report [phone].
.
[2023-10-18 15:34] VITALS: BP 141/72
[2023-10-18] MEDS: MUCINEX 1200 MG PO ×2 (15:35→20:43)
[2023-10-18] MEDS: TYLENOL 650 MG PO (17:10)
[2023-10-18] MEDS: LOVENOX SC ×2 (17:11→17:46)
[2023-10-18] MEDS: TOPROL XL 50 MG PO (17:11)
--- NOTE | 2023-10-18 17:47 | PTCARENOTE ---
Pt c/o of chest congestion and productive moist cough. Pt encouraged to expectorate any mucous. Initially refusing PRN NEBS stating ' they make it worse', but then accepted trmt. TT to Dr. Siegel, n/o rec'd for Mucinex. He stated repeat CXR not
necessary at this time. Pt also refused Lovenox.
[2023-10-18 19:09] VITALS: BP 141/74
--- NOTE | 2023-10-18 19:45 | PTCARENOTE ---
Pt's daughter Berta and son Donavan updated on pt's condition. Daughter Berta says that pt will need transport to [facility] tomorrow. Will pass along to day shift RN.
[2023-10-18] MEDS: CRESTOR 20 MG PO (20:43)
[2023-10-18] MEDS: KLONOPIN 1 MG PO (22:11)
[2023-10-18 22:54] VITALS: BP 121/61
[2023-10-19 03:36] VITALS: BP 133/58
[2023-10-19] MEDS: TYLENOL 650 MG PO (03:49)
[2023-10-19 03:56] VITALS: BMI 24.2
[2023-10-19 07:27] LABS: % Basophils 0.5 % (0-2); % Eosinophils 2.5 % (0-6); % Immature Granulocytes 0.4 % (0-0.5); % Lymphocytes 26.7 % (20.5-51.1); % Monocytes 9.9 % (1.7-9.3); Absolute Eosinophils 0.1 10^3/uL (0-0.7); Absolute Lymphocytes 1.5 10^3/uL (1.2-3.4); Absolute Monocytes 0.6 10^3/uL (0.1-0.6); Absolute Neutrophils 3.4 10^3/uL (1.4-6.5); Hematocrit 32.4 % (37.0-47.0); Hemoglobin 10.8 g/dL (12.0-16.0); Mean Corp Hgb Conc. 33.3 g/dL (33.0-37.0); Mean Corpuscular Hgb 29.8 pg (27.0-31.0); Mean Corpuscular Volume 89.5 fL (81.0-99.0); Mean Platelet Volume 9.8 fL (7.4-10.4); Nucleated Red Blood Cells % 0 %; Platelet Count 230 10^3/uL (130-400); Red Blood Cell Count 3.62 10^6/uL (4.20-5.40); Red Cell Dist. Width 14.5 % (11.5-14.5); White Blood Cell Count 5.6 10^3/uL (4.8-10.8)
[2023-10-19 07:44] VITALS: BP 125/63
[2023-10-19 07:47] LABS: Blood Urea Nitrogen 17 mg/dl (7-17); Calcium 8.6 mg/dl (8.4-10.2); Carbon Dioxide 26 mmol/L (22-30); Chloride 103 mmol/L (98-107); Estimated Creatinine Clearance 47 ml/min; Glucose 93 mg/dl (70-99); Potassium 3.9 mmol/L (3.5-5.1); Sodium 139 mmol/L (135-145); eGFR > 60.00
[2023-10-19] MEDS: PULMICORT 0.5 MG INH (08:00)
[2023-10-19] MEDS: MUCINEX 1200 MG PO (08:02)
[2023-10-19] MEDS: NITRO-DUR 0.100000000000000006 MG TRANSDERM (08:03)
[2023-10-19] MEDS: SENOKOT-S 2 TABLET PO (08:03)
[2023-10-19] MEDS: PLAVIX 75 MG PO (08:11)
[2023-10-19] MEDS: PROTONIX 40 MG PO (08:11)
[2023-10-19] MEDS: CARDIZEM CD 180 MG PO (08:11)
[2023-10-19] MEDS: ZOLOFT 50 MG PO (08:11)
[2023-10-19] MEDS: FLORASTOR 250 MG PO (08:14)
--- NOTE | 2023-10-19 10:44 | W.PN.HOSP.TC ---
Today's Communication/Plan
-
Monitor vital signs see plan
Discharge today
Time of discharge 34 minutes
Assessment / Plan
Assessment / Plan
General:�Comfortable and Conversant
HEENT:�Anicteric, Moist mucous membranes and Oxygen (Nasal Cannula)
Respiratory:�Clear and Non Labored Respirations
Cardiac:�S1/S2 and Regular Rhythm; No Murmur
GI:�Soft, Non Tender and Non Distended
Rectal:�Deferred by Provider
Musculoskeletal:�No Clubbing, No Cyanosis and No Edema
Skin:�Warm and Dry; No Rash
Neuro:�Awake, Alert, Oriented and Other (Left hemiparesis which is baseline)
Unstable Angina
-Cardiology following
trop not significant; likely non [place] related. patient does not want cardiac catheterization as with the previous catheterization she ended up having stroke.
- Echo 10/17 with EF 60 to 65%
-cw nitro patch, pain better
Coronary Artery Disease s/p cardiac stent in 2019
-Attempt to obtain records
-Continue Plavix
CVA post cardiac cath with Residual Left Hemiparesis
-Patient is wheelchair bound at baseline
-Continue Plavix
-PT/OT
Mild anemia, suspect anemia of chronic disease
Diarrhea
monitor; resolved
Essential Hypertension
-Continue diltiazem and metoprolol
Hyperlipidemia
-Continue rosuvastatin
COPD, no acute exacerbation
-Continue Pulmicort neb in place of usual Breo
-Cotninue Duoneb PRN
Generalized Anxiety Disorder
-Continue sertraline
-Continue clonazepam
Spinal Stenosis
-Continue morphine IR prn severe pain
GERD
-Continue Protonix
Chronic Constipation
-Continue Senna-S BID
Recent Citrobacter UTI
- finished Macrobid
DVT proph: Lovenox
Code Status: DNR
Anticipated Discharge: Today
Subjective/Interval History
-
Date of Service: October 19, 2023
Denies pain
Objective Data
-
Labs:
Laboratory Results
10/19/23
06:40
WBC 5.6
Hgb 10.8 L
Hct 32.4 L
Plt Count 230
Sodium 139
Potassium 3.9
Chloride 103
Carbon Dioxide 26
BUN 17
Creatinine 0.8
Glucose 93
Calcium 8.6
Vital Signs:
Vital Signs
Temp Pulse Resp BP Pulse Ox
98.2 F 84 14 125/63 95
10/19/23 07:44 10/19/23 08:11 10/19/23 08:03 10/19/23 08:11 10/19/23 08:03
I&O
10/18/23 10/19/23 10/20/23
06:59 06:59 06:59
Intake Total 1080 / 1080 1080 / 1080
Balance 1080 / 1080 1080 / 1080
--- NOTE | 2023-10-19 10:51 | W.DCSUMMARY ---
Discharge Summary
Discharge Data
Date of Admission: 10/16/23
Date of Discharge: 10/19/23
-
Pending Results: No
Hospital Course
78-year-old female with past medical history of CAD status post cardiac stent, essential hypertension, hyperlipidemia, COPD, generalized anxiety disorder, spinal stenosis, GERD, chronic constipation, UTI came to the hospital with chest pain
2 have angina. Patient was seen by cardiology throughout hospitalization. Echocardiogram was done which showed EF of 60 to 65%. Patient chest pain improved with nitro patch. Troponin was checked which was nonsignificant. After speaking with
cardiology patient decided not to pursue cardiac catheterization. Patient was also evaluated by PT who recommended SNF. Once patient symptoms improved she was then discharged to SNF with close follow-up with all her physicians outpatient.
Discharge Plan
-
Patient Disposition: Home (Routine Discharge)
Discharge Diagnosis/Procedures: Unstable Angina
Ambulatory disfunction
Condition: Fair
Diet: As tolerated
Activity: With assistance and As tolerated
Driving Restrictions: Not until seen by your Dr
Bathing Restrictions: None
Referrals:
Namita Piper PA-C [Specified Professional Personl] - 11/06/23 8:00 am (You have a follow up visit with Dr. Ceja's PA, Namita Piper, at the [facility] office. Please call with questions. )
Alen Vallecillo, [Family Provider] - in less than 1 week
Prescriptions:
New
guaifenesin 600 mg Tablet Extended Release 12hr
1,200 mg PO Q12 Qty: 0 0RF
nitroglycerin 0.1 mg/hr Patch 24 Hour
0.1 mg transdermal DAILY Qty: 0 0RF
Continued
acetaminophen [Tylenol] 325 mg Tablet
650 mg PO Q4H PRN (Reason: mild pain/fever>100.4)
diltiazem HCl 180 mg Capsule,Extended Release 24 Hr
180 mg PO DAILY@0830
metoprolol succinate 50 mg Tablet Extended Release 24 Hr
50 mg PO DAILY@1829
phenazopyridine 200 mg Tablet
200 mg PO TID@829,0,1829
Rx Instructions:
10/16/2023, TID for 3 days; first date: 10/14/2023.
sennosides-docusate sodium 8.6-50 mg Tablet
2 tab-cap PO DAILY@1829
clopidogrel 75 mg Tablet
75 mg PO DAILY@30
magnesium hydroxide [Milk of Magnesia] 400 mg/5 mL Suspension
30 ml PO HSPRN PRN (Reason: constipation)
bisacodyl 10 mg Suppository
10 mg OH DAILY PRN (Reason: q 3 days when no BM and MOM/lactulose ineffective)
pantoprazole 40 mg Tablet,Delayed Release (Dr/Ec)
40 mg PO DAILY@829
nitroglycerin 0.4 mg Tablet, Sublingual
0.4 mg SUBLINGUAL [id number] PRN (Reason: acute angina)
albuterol sulfate 90 mcg/actuation Hfa Aerosol Inhaler
2 puff INHALATION R Q6HPRN PRN (Reason: wheezing)
sertraline 50 mg Tablet
50 mg PO DAILY@829
wdpfmwdt-vjqgkch-ekkj-lutein Tablet
1 tab PO DAILY@829
rosuvastatin 20 mg Tablet
20 mg PO DAILY@2029
Saccharomyces boulardii [Probiotic (S.boulardii)] 250 mg Capsule
250 mg PO BID@829,1829
Rx Instructions:
10/16/2023, BID for 21 days; first date: 10/14/2023.
cholecalciferol (vitamin D3) 1,250 mcg (50,000 unit) Tablet
1,250 mcg PO QMONTH@30
Rx Instructions:
10/16/2023, 3rd Wed. of every month.
fluticasone furoate-vilanterol [Breo Ellipta] 100-25 mcg/dose Blister With Device
1 inh INHALATION R DAILY@0830
clonazepam 1 mg Tablet
1 mg PO DAILY@2029 Qty: 3 0RF
naloxone 4 mg/actuation Bath,Non-Aerosol
1 spray INTRANASAL DAILYPRN PRN (Reason: opioid overdose) Qty: 2 0RF
morphine 15 mg Tablet
15 mg PO Q4H PRN (Reason: severe pain) Qty: 10 0RF
Discontinued
nitrofurantoin monohyd/m-cryst 100 mg Capsule
100 mg PO BID@30,1829
Rx Instructions:
10/16/2023, BID for 7 days; first date: 10/12/2023.
Discharge Orders:
Discharge Patient (As Directed); Ordered 10/19/23
Ordered By: Santhosh Siegel
Discharge Date and Time
Discharge Date/Time: 10/19/23 14:51
--- NOTE | 2023-10-19 11:14 | CM ---
Addendum entered by Aruna Quintero 10/19/23 11:45:
Ambulance time rescheduled for 1:30 pm.
Original Note:
Patient for d/c to [facility] today.
Ambulance transport scheduled for 4:30 pm, daughter updated and requested an earlier transport as her father is being admitted to [facility] from [facility] today.
IMM reviewed with daughter.
[facility]
Report [phone].
.
== END 2023-10-19 14:51 | DRG 303 ==
LOC: 4 WEST ACU 14:31
PROVIDERS: Physician Assistant Medical; ADMITTING PHYSICIAN Internal Medicine; CONSULT PHYSICIAN Internal Medicine Cardiovascular Disease; EMERGENCY PHYSICIAN Emergency Medicine; FAMILY PHYSICIAN Student in an Organized Health Care Education/Training Program
DX: I25.110 Atherosclerotic heart disease of native coronary artery with unstable angina pectoris (principal); N39.0 Urinary tract infection, site not specified; I69.354 Hemiplegia and hemiparesis following cerebral infarction affecting left non-dominant side; I5A Non-ischemic myocardial injury (non-traumatic); I10 Essential (primary) hypertension; J44.9 Chronic obstructive pulmonary disease, unspecified; R09.02 Hypoxemia; E78.5 Hyperlipidemia, unspecified; F32.A Depression, unspecified; F41.1 Generalized anxiety disorder; M48.00 Spinal stenosis, site unspecified; R06.89 Other abnormalities of breathing; D63.8 Anemia in other chronic diseases classified elsewhere; K21.9 Gastro-esophageal reflux disease without esophagitis; K59.09 Other constipation; Z95.5 Presence of coronary angioplasty implant and graft; Z11.52 Encounter for screening for COVID-19; Z87.440 Personal history of urinary (tract) infections; Z85.3 Personal history of malignant neoplasm of breast; Z90.13 Acquired absence of bilateral breasts and nipples; Z90.49 Acquired absence of other specified parts of digestive tract; Z87.891 Personal history of nicotine dependence; Z79.51 Long term (current) use of inhaled steroids; Z79.02 Long term (current) use of antithrombotics/antiplatelets; Z99.3 Dependence on wheelchair; Z66 Do not resuscitate
CPT/HCPCS: 71045; 71275; 80048; 80061; 83605; 83735; 83880; 84484; 85025; 85027; 87040; 87070; 87502; 87811; 93005; 93306; 94640; 97163; 97166; 97530; 99285; Q9967